=== PATIENT | male | born 1995 | race Caucasian/White ===

== ENCOUNTER 2017-02-18 09:10 | Emergency (ER) | payer OTHER ==
[2017-02-18 09:26] VITALS: TEMP 98.3; BMI 22.6
--- NOTE | 2017-02-18 09:54 | PDOC ---
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 Patient complains of the onset of sharp stabbing mid chest pain at 7:00 this morning which is been off and on There is no change with musculoskeletal maneuvers There is no change with deep inspiration There is no associated neck jaw or arm radiation There are no associated palpitations or shortness of breath There is been no recent leg swelling or travel He does do a lot of heavy lifting at work He states that he has had this same chest pain off and on for a while, and his primary care physician in [place] send him to a senior back end java developer or a stress test in November He states that he had a negative stress test in November of this year He denies any radiation to his back He denies any fevers or chills, or cough or sputum He denies any other complaints at this time, and the remainder of the review of systems is negative There is no change in the pain laying flat or sitting up Patient is a nonsmoker, he denies drug or alcohol He has no history of diabetes or hyperlipidemia He states his father has some kind of "heart condition" in the [place], but he has no idea what kind of heart condition and his father has Past History - Past Medical History Allergies/Adverse Reactions: Allergies Allergy/AdvReac Type Severity Reaction Status Date / Time No Known Allergies Allergy Verified 02/18/17 09:16 Home Medications: Ambulatory Orders NK [No Known Home Medication] 02/18/17 - Psycho/Social/Smoking Cessation Hx Anxiety: No Suicidal Ideation: No Smoking History: Never smoked Hx Alcohol Use: No Drug/Substance Use Hx: No Substance Use Type: None Review of Systems - Review of Systems Able to Perform ROS?: Yes Comments:: 02/18/17 09:58 .12 point review of systems is as per history of present illness and otherwise negative *Physical Exam - Vital Signs Last Vital Signs Temp Pulse Resp BP Pulse Ox 98.3 F 63 15 122/72 100 02/18/17 09:15 02/18/17 09:15 02/18/17 09:15 02/18/17 09:15 02/18/17 09:15 - Physical Exam Comments: 02/18/17 10:00 Physical exam Last Vital Signs Temp Pulse Resp BP Pulse Ox 98.3 F 63 15 122/72 100 02/18/17 09:15 02/18/17 09:15 02/18/17 09:15 02/18/17 09:15 02/18/17 09:15 GENERAL: The patient is awake, alert, and fully oriented, and in no apparent distress. HEAD: Normal with no signs of trauma. EYES: sclera anicteric, conjunctiva are normal. ENT: Moist mucous membranes. NECK: Normal range of motion, LUNGS: Breath sounds equal, clear to auscultation bilaterally. No wheezes, and no crackles. HEART: Regular rate and rhythm, normal S1 and S2 without murmur, rub or gallop. CHEST WALL: There is no tenderness to palpation of the anterior chest wall ABDOMEN: Soft, nontender, normoactive bowel sounds. No guarding, no rebound. No masses appreciated. EXTREMITIES: Normal range of motion, no edema. No clubbing or cyanosis. No cords, erythema, or tenderness. NEUROLOGICAL: Cranial nerves II through XII grossly intact. Normal speech, normal gait. PSYCH: Normal mood, normal affect. SKIN: Warm, Dry, normal turgor, no rashes or lesions noted. Heart Score/ECG Review - History History: Slightly suspicious - Electrocardiogram EKG: Normal - Age Age: </= 45 - Risk Factors Based on the list above the patient has:: No risk factors known - Troponin Troponin: </= normal limit - Score Heart Score - Total: 0 ED Treatment Course - LABORATORY CBC & Chemistry Diagram: 02/18/17 09:55 02/18/17 09:55 - RADIOLOGY Radiology Studies Ordered: Category Date Time Status CHEST PA & LAT [RAD] Stat Radiology 02/18/17 09:53 Ordered Medical Decision Making - Medical Decision Making 02/18/17 10:12 Atypical sounding chest pain, patient had a recent negative stress test EKG Normal sinus rhythm, with respiratory variation Normal axis Normal AV and IV conduction time Normal QTC Essentially normal EKG There is no old EKG available for comparison at this time Heart score is 0 02/18/17 13:03 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 CK 935 Will give 2 bags of saline, and recheck First troponin negative Laboratory Results - last 24 hr 02/18/17 02/18/17 02/18/17 09:55 09:55 09:55 WBC 5.1 RBC 4.63 Hgb 13.7 Hct 42.1 MCV 90.8 MCHC 32.6 RDW 12.9 Plt Count 196 MPV 8.9 Sodium 137 Potassium 4.2 Chloride 103 Carbon Dioxide 27 Anion Gap 7 L BUN 13 Creatinine 1.0 Creat Clearance w eGFR > 60 Random Glucose 72 L Calcium 9.0 Total Bilirubin 0.5 AST 33 ALT 17 Alkaline Phosphatase 65 Creatine Kinase 935 H CK-MB (CK-2) Cancelled 4.2 H CK-MB (CK-2) Rel Index 0.5 Troponin I < 0.03 L Total Protein 7.0 Albumin 4.0 02/18/17 13:03 Chest x-ray PA and lateral-negative 02/18/17 16:42 CK trending down with hydration UA completely normal Second trop negative Patient will rest for the next to 3 days, and drink plenty of water He will follow-up with his primary care physician *DC/Admit/Observation/Transfer Diagnosis at time of Disposition: Atypical chest pain - Discharge Dispostion Disposition: HOME Condition at time of disposition: Improved - Patient Instructions Printed Discharge Instructions: DI for Atypical Chest Pain Additional Instructions: Rest for the next few days-no work, no weight lifting, no exercise Drink plenty of fluids Followup with your primary care physician in 24-48 hours Please call first thing in the morning for an appointment SHAY Return immediately if you worsen in any way - Post Discharge Activity Work/School Note: Back to Work
[2017-02-18 10:40] LABS: MCH 29.6 pg (25.7-33.7); MCHC 32.6 g/dl (32.0-35.9); MEAN CELL VOLUME 90.8 fl (80-96); MEAN PLT VOLUME 8.9 fl (7.5-11.1); PLATELET COUNT 196 K/MM3 (134-434); RDW 12.9 % (11.9-15.9); WHITE BLOOD COUNT 5.1 K/mm3 (4.0-10.8)
[2017-02-18 11:26] LABS: ALK PHOS 65 U/L (32-92); ANION GAP 7 (8-16); BILIRUBIN,TOTAL 0.5 mg/dl (0.2-1.0); CO2 27 mmol/L (22-28); GLUCOSE,RANDOM 72 mg/dl (74-106); SGOT/AST 33 U/L (10-42); SGPT/ALT 17 U/L (10-40)
[2017-02-18 11:32] LABS: CPK(DFH) 935 IU/L (38-174)
[2017-02-18] MEDS ORDERED: SODIUM CHLORIDE 0.9% 500 ML INFUS.BAG IV ONE (11:34)
[2017-02-18 11:39] LABS: TROPONIN I (DFP) < 0.03 ng/ml (0.03-0.50)
[2017-02-18 11:40] LABS: CK MB 4.2 ng/ml (0.3-4.0)
[2017-02-18] MEDS ORDERED: SODIUM CHLORIDE 1,000 ML IV SCH (12:15)
[2017-02-18 16:18] LABS: URINE APPEARANCE Clear; URINE BILIRUBIN Negative (NEGATIVE); URINE BLOOD Negative (NEGATIVE); URINE GLUCOSE (UA) Negative (NEGATIVE); URINE KETONE Negative (NEGATIVE); URINE LEUK ESTERASE Negative (NEGATIVE); URINE NITRITE Negative (NEGATIVE); URINE PROTEIN Negative (NEGATIVE); URINE UROBILINOGEN 1.0 E.U/dl (0.2-1.0)
[2017-02-18 16:20] LABS: URINE COLOR YELLOW
[2017-02-18 16:22] LABS: TROPONIN I (DFP) < 0.03 ng/ml (0.03-0.50)
[2017-02-18 16:38] LABS: CPK(DFH) 724 IU/L (38-174)
[2017-02-18 16:42] LABS: CK MB 3.3 ng/ml (0.3-4.0)
[2017-02-18 16:47] VITALS: BP 130/70; PULSE 72
--- NOTE | 2017-02-19 12:32 | EKG ---
Test Reason : Blood Pressure : / mmHG Vent. Rate : 070 BPM Atrial Rate : 070 BPM P-R Int : 128 ms QRS Dur : 088 ms QT Int : 376 ms P-R-T Axes : 075 069 038 degrees QTc Int : 406 ms SINUS RHYTHM WITH SINUS ARRHYTHMIA RSR' OR QR PATTERN IN V1 SUGGESTS RIGHT VENTRICULAR CONDUCTION DELAY NO PREVIOUS ECGS AVAILABLE Confirmed by ZACK WITT MD ([id number]) on 02/19/2017 12:32:11 PM Referred By: CHRISSIE MYERS Confirmed By:ZACK WITT MD
== END 2017-02-18 16:54 | disposition home or self-care (01) ==
LOC: FER 09:10
PROC: 3E0337Z Introduction of Electrolytic and Water Balance Substance into Peripheral Vein, Percutaneous Approach (ICD-10-PCS; principal; 2017-02-18)
DX: R07.89 Other chest pain (principal)
CPT/HCPCS: 36415; 71020-TC; 80053; 81003; 82550; 82553; 84484; 85027; 93005; 99284-25